=== PATIENT | female | born 1970 | race Caucasian/White ===

== ENCOUNTER 2018-09-27 02:25 | Emergency (ER) | payer OTHER ==
--- NOTE | 2018-09-27 02:32 | PDOC ---
History of Present Illness - General Chief Complaint: Allergic Reaction Stated Complaint: ALLERGIC REACTION Time Seen by Provider: 09/27/18 02:32 - History of Present Illness Initial Comments: This 47-year-old woman with a history of GERD but no other significant past medical issues presents with a one-day history of progressive rash. Approximately 12 hours prior to presentation she noted erythematous, itchy rash of bilateral proximal thighs. Over the next several hours, rash spread to upper extremities, chest and back. She took 2 doses of Benadryl 25 mg over the next 6 hours. She presents to the ER because of persistent itching. No history of lip or tongue swelling; no difficulty swallowing or breathing. She reports no wheezing. No known history of ALLERGIES; she cannot recall any exposure to new foods/ medication/topicals. No recent fever or acute infection. Patient swam in a [place]lin 5 days ago but had no rash in the interim. Medication: Multivitamin Denies smoking/social alcohol only/no other drug use Past History - Past Medical History Allergies/Adverse Reactions: Allergies Allergy/AdvReac Type Severity Reaction Status Date / Time No Known Allergies Allergy Verified 09/27/18 02:29 Home Medications: Ambulatory Orders Multivitamins [Multivit ([facility])] 1 tab PO DAILY 01/14/14 Clobetasol Propionate [Temovate] 1 gm TP BID #1 tube 09/27/18 Prednisone [Deltasone] 40 mg PO DAILY #8 tablet 09/27/18 Anemia: No Asthma: No Cancer: No Cardiac Disorders: No CVA: No COPD: No CHF: No Dementia: No Diabetes: No GI Disorders: Yes (ESOPHAGEAL STRICTURE) Disorders: No HTN: No Hypercholesterolemia: Yes (NO MEDICATIONS) Liver Disease: No Seizures: No Thyroid Disease: No - Surgical History Abdominal Surgery: Yes Appendectomy: No Cardiac Surgery: No Cholecystectomy: No Lung Surgery: No Neurologic Surgery: No Orthopedic Surgery: No - Suicide/Smoking/Psychosocial Hx Smoking Status: No Smoking History: Never smoked Have you smoked in the past 12 months: No Number of Cigarettes Smoked Daily: 0 Hx Alcohol Use: Yes Drug/Substance Use Hx: No Substance Use Type: Alcohol Hx Substance Use Treatment: No Review of Systems - Review of Systems Able to Perform ROS?: Yes Comments:: 12 point review of systems is negative except for what is noted in the history of present illness *Physical Exam - Physical Exam Comments: GENERAL: Adult female, slightly anxious and in mild distress secondary to pruritic rash HEAD: Normal with no signs of trauma. EYES: PERRLA, EOMI, sclera anicteric, conjunctiva clear. ENT: Ears normal, nares patent, oropharynx clear without exudates. Moist mucous membranes. No lip/tongue/uvular edema NECK: Normal range of motion, supple without lymphadenopathy, JVD, or masses. No stridor LUNGS: Breath sounds equal, clear to auscultation bilaterally. No wheezes, and no crackles. HEART:Regular rate and rhythm, normal S1 and S2 without murmur, rub or gallop. ABDOMEN:.normal bowel sounds No guarding,tenderness or rebound.No masses No distention. SKIN: Erythematous, maculopapular rash of back/anterior chest/upper extremities and lower extremities; rash is confluent in areas of the proximal thighs Medical Decision Making - Medical Decision Making This otherwise healthy 47-year-old woman presents with 1 day history of pruritic rash. No known exposure to possible allergens; no fever or other acute illnesses present. Patient has had no airway compromise symptoms; she presents tonight because of intense pruritus, persistent after OTC Benadryl. Exam as noted above with rash consistent with urticaria. No clinical evidence of facial/airway edema. Etiology of urticaria at this point is unclear. Patient will be given additional antihistamine in the form of Benadryl 50 mg IM. Also, because of her intense pruritus, the patient will be started on prednisone course. Loading dose of 60 mg given orally in the emergency room. Prescription for daily dose of 40 mg for the next 4 days sent to her pharmacy. Also, she can take antihistamines as needed for breakthrough itching.(Suggestion of nonsedating during the day/Benadryl at night as needed). She should return to the ER if she has any difficulty swallowing/breathing or lip/tongue swelling. The patient is scheduled to leave on a trip to [place] with her family in 3 days. The importance of reporting to emergency facility if she has any progression to upper airway edema or has symptoms of dyspnea/wheezing discussed with patient. The patient will follow-up with her PMD when she returns from her travels for possible ALLERGIC testing. Patient asked for a cream to be used when she was in [place] (if she has recurrence after her prednisone course finishes). Prescription for clobetasol 0.05% to be used twice a day as needed for rash sent to her pharmacy. *DC/Admit/Observation/Transfer Diagnosis at time of Disposition: Urticaria - Discharge Dispostion Disposition: HOME Condition at time of disposition: Stable - Prescriptions Prescriptions: Clobetasol Propionate [Temovate] 1 gm TP BID #1 tube Prednisone [Deltasone] 40 mg PO DAILY #8 tablet - Referrals - Patient Instructions Printed Discharge Instructions: [facility] Additional Instructions: Prednisone 40 mg daily for the next 4 days; take with food Continue omeprazole as prescribed; if you experience heartburn, can take up to 40 mg daily Benadryl as needed for itching at night Claritin/Zyrtec/[place] as needed for itching during the day Return to ER immediately if you have difficulty swallowing/breathing or you have lip/tongue swelling Follow-up with your doctor when you return from traveling - Post Discharge Activity
[2018-09-27 02:33] VITALS: BP 142/92; PULSE 98; TEMP 97.9; BMI 23.6
[2018-09-27] MEDS ORDERED: predniSONE 20 MG TABLET (UD) ONE (02:47)
[2018-09-27] MEDS ORDERED: predniSONE 20 MG TABLET (UD) PO ONE (02:56)
[2018-09-27] MEDS ORDERED: predniSONE 20 MG TABLET (UD) PO SCH (10:00)
== END 2018-09-27 03:09 | disposition home or self-care (01) ==
LOC: FER 02:25
PROC: 3E023GC Introduction of Other Therapeutic Substance into Muscle, Percutaneous Approach (ICD-10-PCS; principal; 2018-09-27)
DX: L50.9 Urticaria, unspecified (principal)
CPT/HCPCS: 99281-25